=== PATIENT | male | born 1995 | race Caucasian/White ===

== ENCOUNTER 2020-01-20 12:22 | Inpatient (IN) | payer MEDICAID ==
[~2020-01-20] VITALS: Ht 188 cm; Wt 68.3 kg
[2020-01-20 15:33] LABS: BASOPHILS % (AUTO) 1.1 % (0.0-2.0); HEMATOCRIT 36.5 % (41-53); HEMOGLOBIN 11.5 g/dL (13.5-17.5); LYMPHOCYTES # (AUTO) 1.7 K/uL (1.0-4.8); LYMPHOCYTES % (AUTO) 24.3 % (22.0-44.0); MEAN CORPUSCULAR HEMOGLOBIN 22.8 pg (26.0-34.0); MEAN CORPUSCULAR HGB CONC 31.6 G/dL (31.0-37.0); MEAN CORPUSCULAR VOLUME 72 fL (80-100); MONOCYTES # (AUTO) 0.6 K/uL (0.1-1.0); MONOCYTES % (AUTO) 8.5 % (2.0-9.0); NEUTROPHILS # (AUTO) 4.1 K/uL (1.8-7.7); NEUTROPHILS % (AUTO) 59.1 % (40.0-70.0); PLATELET COUNT (AUTO) 270 K/uL (150-450); RED BLOOD CELL COUNT(AUTO) 5.07 MIL/uL (4.50-5.90); RED CELL DISTRIBUTION WIDTH 19.1 % (11.5-14.5)
[2020-01-20 15:52] LABS: ANION GAP 7 mmol/L (8-16); CALCIUM, TOTAL 9.1 mg/dL (8.8-10.5); CARBON DIOXIDE 30 mmol/L (22-29); CHLORIDE 103 mmol/L (98-107); CREATININE 0.78 mg/dL (0.60-1.30); GLOMERULAR FILTR. RATE CALC > 60 mL/min (>60); GLUCOSE,RANDOM 96 mg/dL (70-110); POTASSIUM 4.4 mmol/L (3.5-5.1); SODIUM SERUM 140 mmol/L (136-145); UREA NITROGEN, BLOOD 20 mg/dL (7-18)
[2020-01-20 15:56] LABS: ALANINE AMINOTRANSFERASE 28 U/L (12-78); ALBUMIN 3.9 g/dL (3.4-5.0); ALKALINE PHOSPHATASE 76 U/L (46-116); ASPARTATE AMINOTRANSFERASE 35 U/L (15-37); BILIRUBIN,TOTAL 0.5 mg/dL (0.1-1.0); TOTAL PROTEIN, SERUM 7.7 g/dL (6.4-8.2)
[2020-01-20 16:08] LABS: AMPHET/METH SCREEN,URINE NEGATIVE (NEGATIVE); BARBITURATE SCREEN, URINE NEGATIVE (NEGATIVE); BENZODIAZEPINES SCREEN,URINE NEGATIVE (NEGATIVE); CANNABINOID SCREEN,URINE NEGATIVE (NEGATIVE); COCAINE SCREEN,URINE NEGATIVE (NEGATIVE); METHADONE SCREEN, URINE NEGATIVE (NEGATIVE); OPIATE SCREEN,URINE NEGATIVE (NEGATIVE)
[2020-01-20 16:11] LABS: PHENCYCLIDINE SCREEN,URINE NEGATIVE (NEGATIVE)
[2020-01-20] MEDS ORDERED: HALOPERIDOL 5 MG TABLET PO ONE (16:15)
[2020-01-20] MEDS ORDERED: ZOLPIDEM TARTRATE 10 MG TABLET PO PRN (17:15)
[2020-01-20] MEDS ORDERED: LORazepam 2 MG TABLET PO PRN (17:15)
[2020-01-20] MEDS ORDERED: HALOPERIDOL 5 MG TABLET PO PRN (17:15)
[2020-01-20] MEDS ORDERED: PIPERONYL BUTOXIDE/PYRETHRINS 120 ML SHAMPOO TP ONE ×2 (19:30→20:15)
[2020-01-20 20:02] VITALS: BP 129/75
[2020-01-21] MEDS ORDERED: IBUPROFEN 400 MG TABLET PO PRN (06:45)
[2020-01-21] MEDS ORDERED: DOCUSATE SODIUM 100 MG CAPSULE PO PRN (06:45)
[2020-01-21] MEDS ORDERED: MAG HYDROX/AL HYDROX/SIMETH ES 30 ML SUSPENSION UDCUP PO PRN (06:45)
[2020-01-21] MEDS ORDERED: ACETAMINOPHEN 325 MG TABLET PO PRN (06:45)
[2020-01-21] MEDS ORDERED: MAGNESIUM HYDROXIDE SUSPENSION 30 ML UDCUP PO PRN (06:45)
[2020-01-21] MEDS ORDERED: ONDANSETRON HCL 4 MG TABLET PO PRN (06:45)
[2020-01-21] MEDS ORDERED: LOPERAMIDE HCL 2 MG CAPSULE PO PRN (06:45)
[2020-01-21] MEDS ORDERED: PETROLATUM,WHITE 28 GM JELLY TP PRN (06:45)
[2020-01-21] MEDS ORDERED: NICOTINE 14 MG/24 HOUR PATCH TD PRN (06:45)
[2020-01-21] MEDS ORDERED: ALBUTEROL SULFATE HFA 90 MCG/PUFF 8 GM INHALER IH PRN (06:45)
[2020-01-21] MEDS ORDERED: GuaiFENesin/D-METHORPHAN [SUGAR-FREE] 200-20MG/10 ML SYRUP UDCUP PO PRN (06:45)
[2020-01-21] MEDS ORDERED: CloNIDine HCL 0.1 MG TABLET PO PRN (06:45)
[2020-01-21] MEDS: NICOTINE 21 MG/24 HOUR PATCH TD SCH (09:48)
[2020-01-21] MEDS: RisperiDONE 2 MG TABLET PO SCH ×2 (09:49→20:34)
[2020-01-21 09:55] VITALS: BP 108/58
[2020-01-21 17:16] VITALS: BP 116/72
[2020-01-22] MEDS: RisperiDONE 2 MG TABLET PO SCH ×2 (08:19→20:24)
[2020-01-22] MEDS: NICOTINE 21 MG/24 HOUR PATCH TD SCH (08:19)
[2020-01-22 09:55] VITALS: BP 132/81
[2020-01-22 16:00] VITALS: BP 128/80
[2020-01-23] MEDS: RisperiDONE 2 MG TABLET PO SCH ×2 (09:51→20:59)
[2020-01-23] MEDS: NICOTINE 21 MG/24 HOUR PATCH TD SCH (09:52)
[2020-01-23 10:51] VITALS: BP 134/73
[2020-01-23 16:00] VITALS: BP 104/60
[2020-01-23] MEDS ORDERED: PERMETHRIN 1% 60 ML LOTION TP ONE (16:45)
[2020-01-23] MEDS ORDERED: PERMETHRIN 5% 60 GM CREAM TP ONE (18:45)
[2020-01-23] MEDS: PERMETHRIN 5% 60 GM CREAM TP ONE ×2 (22:39→22:45)
[2020-01-24 08:00] VITALS: BP 106/64
[2020-01-24] MEDS: RisperiDONE 2 MG TABLET PO SCH ×2 (08:59→20:04)
[2020-01-24] MEDS: NICOTINE 21 MG/24 HOUR PATCH TD SCH (09:01)
[2020-01-24 16:00] VITALS: BP 115/58
[2020-01-24] MEDS ORDERED: PERMETHRIN 5% 60 GM CREAM TP ONE (19:15)
[2020-01-25] MEDS: RisperiDONE 2 MG TABLET PO SCH ×2 (08:51→20:31)
[2020-01-25] MEDS: NICOTINE 21 MG/24 HOUR PATCH TD SCH (08:52)
[2020-01-25 10:47] VITALS: BP 123/76
[2020-01-25 16:27] VITALS: BP 135/65
[2020-01-26 08:00] VITALS: BP 105/83
[2020-01-26] MEDS: NICOTINE 21 MG/24 HOUR PATCH TD SCH (10:05)
[2020-01-26] MEDS: RisperiDONE 2 MG TABLET PO SCH (10:06)
[2020-01-26 16:16] VITALS: BP 128/92
[2020-01-26] MEDS: RisperiDONE 3 MG TABLET PO SCH (20:18)
[2020-01-26 21:12] VITALS: BP 129/87
[2020-01-27] MEDS: NICOTINE 21 MG/24 HOUR PATCH TD SCH (09:08)
[2020-01-27] MEDS: RisperiDONE 3 MG TABLET PO SCH ×2 (09:08→20:34)
[2020-01-27 09:30] VITALS: BP 102/61
[2020-01-27 16:15] VITALS: BP 107/67
[2020-01-28 09:20] VITALS: BP 130/81
[2020-01-28] MEDS: RisperiDONE 3 MG TABLET PO SCH ×2 (09:45→20:15)
[2020-01-28] MEDS: NICOTINE 21 MG/24 HOUR PATCH TD SCH (09:46)
[2020-01-28 16:00] VITALS: BP 106/60
[2020-01-29] MEDS: NICOTINE 21 MG/24 HOUR PATCH TD SCH (08:29)
[2020-01-29] MEDS: RisperiDONE 3 MG TABLET PO SCH ×2 (08:29→21:31)
[2020-01-29 09:46] VITALS: BP 112/67
[2020-01-29 18:47] VITALS: BP 116/62
[2020-01-30] MEDS: NICOTINE 21 MG/24 HOUR PATCH TD SCH (08:49)
[2020-01-30] MEDS: RisperiDONE 3 MG TABLET PO SCH ×2 (08:49→20:39)
[2020-01-30 09:45] VITALS: BP 103/60
[2020-01-30 16:01] VITALS: BP 108/63
[2020-01-31] MEDS: RisperiDONE 3 MG TABLET PO SCH ×2 (10:35→21:04)
[2020-01-31] MEDS: NICOTINE 21 MG/24 HOUR PATCH TD SCH (10:37)
[2020-01-31 16:28] VITALS: BP 127/75
[2020-02-01 08:00] VITALS: BP 120/70
[2020-02-01] MEDS: RisperiDONE 3 MG TABLET PO SCH ×2 (10:35→20:29)
[2020-02-01] MEDS: NICOTINE 21 MG/24 HOUR PATCH TD SCH (10:35)
[2020-02-01 16:25] VITALS: BP 107/63
[2020-02-02 08:00] VITALS: BP 104/53
[2020-02-02] MEDS: RisperiDONE 3 MG TABLET PO SCH ×2 (09:58→20:44)
[2020-02-02] MEDS: NICOTINE 21 MG/24 HOUR PATCH TD SCH (09:59)
[2020-02-02 16:00] VITALS: BP 120/81
[2020-02-03 08:00] VITALS: BP 119/69
[2020-02-03] MEDS: NICOTINE 21 MG/24 HOUR PATCH TD SCH (09:12)
[2020-02-03] MEDS: RisperiDONE 3 MG TABLET PO SCH ×2 (09:13→20:44)
[2020-02-03 16:00] VITALS: BP 148/72
[2020-02-04 08:00] VITALS: BP 117/70
[2020-02-04] MEDS ORDERED: PIPERONYL BUTOXIDE/PYRETHRINS 120 ML SHAMPOO TP ONE (08:00)
[2020-02-04] MEDS: NICOTINE 21 MG/24 HOUR PATCH TD SCH (08:22)
[2020-02-04] MEDS: RisperiDONE 3 MG TABLET PO SCH ×2 (08:22→20:43)
[2020-02-04 16:00] VITALS: BP 128/64
[2020-02-05] MEDS: RisperiDONE 3 MG TABLET PO SCH (08:53)
[2020-02-05] MEDS: NICOTINE 21 MG/24 HOUR PATCH TD SCH (08:54)
[2020-02-05] MEDS ORDERED: RISP3TAB14 PO (09:27)
[2020-02-05 11:02] VITALS: BP 116/62
== END 2020-02-05 12:21 | disposition home or self-care (01) | DRG 885 ==
LOC: EMS 12:25 → 3EI 17:12 → UNDOADMIN 18:24
DX: F20.1 Disorganized schizophrenia (principal); F10.10 Alcohol abuse, uncomplicated; D64.9 Anemia, unspecified; F19.10 Other psychoactive substance abuse, uncomplicated; Z59.0 Homelessness; B85.0 Pediculosis due to Pediculus humanus capitis; K59.00 Constipation, unspecified; Z79.899 Other long term (current) drug therapy; Y90.9 Presence of alcohol in blood, level not specified
CPT/HCPCS: 70450; G0480

== ENCOUNTER 2020-02-13 11:43 | Emergency (ER) | payer MEDICAID ==
[~2020-02-13] VITALS: Ht 188 cm; Wt 77.3 kg
[~2020-02-13 11:43] MED LIST: RISP3TAB14 PO
[2020-02-13 12:48] LABS: BASOPHILS % (AUTO) 0.9 % (0.0-2.0); EOSINOPHILS % (AUTO) 3.5 % (1.0-6.0); HEMATOCRIT 33.6 % (41-53); HEMOGLOBIN 10.7 g/dL (13.5-17.5); LYMPHOCYTES # (AUTO) 1.2 K/uL (1.0-4.8); LYMPHOCYTES % (AUTO) 21.2 % (22.0-44.0); MEAN CORPUSCULAR HEMOGLOBIN 23.1 pg (26.0-34.0); MEAN CORPUSCULAR HGB CONC 31.7 G/dL (31.0-37.0); MEAN CORPUSCULAR VOLUME 73 fL (80-100); MONOCYTES # (AUTO) 0.4 K/uL (0.1-1.0); MONOCYTES % (AUTO) 7.8 % (2.0-9.0); NEUTROPHILS # (AUTO) 3.6 K/uL (1.8-7.7); NEUTROPHILS % (AUTO) 66.6 % (40.0-70.0); PLATELET COUNT (AUTO) 231 K/uL (150-450); RED BLOOD CELL COUNT(AUTO) 4.61 MIL/uL (4.50-5.90); RED CELL DISTRIBUTION WIDTH 18.2 % (11.5-14.5)
[2020-02-13 13:12] LABS: ANION GAP 6 mmol/L (8-16); CARBON DIOXIDE 30 mmol/L (22-29); CHLORIDE 107 mmol/L (98-107); CREATININE 0.76 mg/dL (0.60-1.30); GLOMERULAR FILTR. RATE CALC > 60 mL/min (>60); GLUCOSE,RANDOM 98 mg/dL (70-110); SODIUM SERUM 143 mmol/L (136-145); UREA NITROGEN, BLOOD 15 mg/dL (7-18)
[2020-02-13 13:18] LABS: ALANINE AMINOTRANSFERASE 35 U/L (12-78); ALBUMIN 3.6 g/dL (3.4-5.0); ALKALINE PHOSPHATASE 60 U/L (46-116); ASPARTATE AMINOTRANSFERASE 23 U/L (15-37); BILIRUBIN,TOTAL 0.3 mg/dL (0.1-1.0); TOTAL PROTEIN, SERUM 7.3 g/dL (6.4-8.2)
[2020-02-13 15:15] VITALS: BP 137/75
== END 2020-02-13 15:30 | disposition home or self-care (01) ==
LOC: EMS 11:49
DX: F22 Delusional disorders (principal); R45.851 Suicidal ideations; Z59.0 Homelessness; F17.210 Nicotine dependence, cigarettes, uncomplicated; F14.90 Cocaine use, unspecified, uncomplicated; F19.90 Other psychoactive substance use, unspecified, uncomplicated
CPT/HCPCS: 36415; 80053; 85025; 99285; G0480